=== PATIENT | male | born 1980 | race African-American/Black ===

== ENCOUNTER 2020-03-14 15:45 | Emergency (ER) | payer MEDICAID ==
[~2020-03-14] VITALS: Ht 172.7 cm; Wt 93.0 kg
[2020-03-14 16:07] VITALS: BP 119/74
== END 2020-03-14 16:20 | disposition left against medical advice (07) ==
LOC: ER 15:45
DX: T40.0X1A Poisoning by opium, accidental (unintentional), initial encounter (principal); Y92.89 Other specified places as the place of occurrence of the external cause; I10 Essential (primary) hypertension; F17.290 Nicotine dependence, other tobacco product, uncomplicated; F12.10 Cannabis abuse, uncomplicated
CPT/HCPCS: 93005; 99283